=== PATIENT | male | born 1960 | race Caucasian/White ===

== ENCOUNTER 2018-08-12 08:33 | Day surgery (SDC) | payer BC | END 2018-08-12 10:50 | disposition home or self-care (01) | LOC: JASU-ENDO 08:33 ==

== ENCOUNTER 2019-03-02 00:36 | Emergency (ER) | payer BC ==
[2019-03-02 00:50] VITALS: BP 131/79; PULSE 71; TEMP 97.9; BMI 30.7
--- NOTE | 2019-03-02 01:27 | PDOC ---
Attending Attestation - Resident Resident Name: JenySky - ED Attending Attestation I have performed the following: I have examined & evaluated the patient, The case was reviewed & discussed with the resident, I agree w/resident's findings & plan - HPI HPI: 03/02/19 02:18 see resident hpi - Physicial Exam PE: 03/02/19 02:18 agree with resident exam - Medical Decision Making 03/02/19 02:19 58-year-old male complaining of nose bleeding that began just prior to arrival Patient is currently on Plavix On reexam in the emergency department he has had no active bleeding At this time nasal packing would potentially cause more harm than benefit Plan for short-term observation and if bleeding remains controlled will discharge with further instructions with outpatient follow-up
--- NOTE | 2019-03-02 02:03 | PDOC ---
History of Present Illness - General Chief Complaint: Nasal Bleeding Stated Complaint: BLEEDING FROM MOUTH Time Seen by Provider: 03/02/19 01:27 History Source: Patient Exam Limitations: No Limitations - History of Present Illness Initial Comments: 03/02/19 01:48 58 YO male pmh HTN, HLD, s/p cardiac stent (on Plavix) presents to the ED for a nose bleed. Pt states the bleed started around 7 pm after blowing, from the left nostril and intermittently stops but restarts. Denies nose picking, persistent blowing of nose, hx of bleeds or bleeding disorders, lightheadedness , weakness, hx of anemia. Pt =denies excessive loss of blood Past History - Past Medical History Allergies/Adverse Reactions: Allergies Allergy/AdvReac Type Severity Reaction Status Date / Time ramipril Allergy Verified 03/02/19 00:47 Home Medications: Ambulatory Orders Allopurinol [Zyloprim -] 300 mg PO DAILY 05/23/12 Metoprolol Tartrate [Lopressor -] 25 mg PO BID 05/23/12 Amlodipine/Atorvastatin [Amlodipine-Atorvast 2.5-20 mg] 1 tab PO DAILY 08/11/18 Atorvastatin Ca [Lipitor] 40 mg PO HS 08/11/18 Clopidogrel Bisulfate [Clopidogrel] 1 tab PO DAILY 08/11/18 Tamsulosin HCl 0.4 mg PO DAILY 08/12/18 Anemia: No Asthma: No Cancer: No Cardiac Disorders: Yes (ASHD S/P STENT) CVA: (TIA WITH RIGHT HEMIPARESIS 2014) COPD: No CHF: No Dementia: No Diabetes: No 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) HTN: Yes Hypercholesterolemia: Yes Kidney Stones: Yes Liver Disease: No Seizures: No Thyroid Disease: No - Surgical History Abdominal Surgery: No Appendectomy: No Cardiac Surgery: Yes (STENTS 2011 X 1) Cholecystectomy: No Lung Surgery: No Neurologic Surgery: No Orthopedic Surgery: No - Psycho Social/Smoking Cessation Hx Smoking Status: No Smoking History: Never smoked Have you smoked in the past 12 months: No Number of Cigarettes Smoked Daily: 0 If you are a former smoker, when did you quit?: 2000 Hx Alcohol Use: No Drug/Substance Use Hx: No Substance Use Type: None Hx Substance Use Treatment: No Review of Systems - Review of Systems Constitutional: Yes: Symptoms Reported HEENTM: Yes: Symptoms Reported Respiratory: Yes: Symptoms reported Cardiac (ROS): Yes: Symptoms Reported ABD/GI: Yes: Symptoms Reported : Yes: Symptoms Reported Musculoskeletal: Yes: Symptoms Reported Integumentary: Yes: Symptoms Reported Neurological: Yes: Symptoms reported *Physical Exam - Vital Signs Last Vital Signs Temp Pulse Resp BP Pulse Ox 97.9 F 71 16 131/79 99 03/02/19 00:48 03/02/19 00:48 03/02/19 00:48 03/02/19 00:48 03/02/19 00:48 - Physical Exam General Appearance: Yes: Nourished, Appropriately Dressed. No: Apparent Distress HEENT: positive: EOMI, Other (no active nasal bleeding, no blood in the oral oharynx) Neck: positive: Supple. negative: Carotid bruit Respiratory/Chest: positive: Lungs Clear, Normal Breath Sounds. negative: Accessory Muscle Use, Rapid RR Cardiovascular: positive: Regular Rhythm, Regular Rate, S1, S2. negative: Edema Vascular Pulses: Dorsalis-Pedis (R): 4+, Doralis-Pedis (L): 4+ Gastrointestinal/Abdominal: positive: Flat, Soft. negative: Pulsatile Mass, Distended, Guarding, Rebound, Tenderness Musculoskeletal: negative: CVA Tenderness Integumentary: positive: Normal Color, Dry, Warm. negative: Ecchymosis, Bruising Neurologic: positive: Fully Oriented, Alert, Normal Mood/Affect, Normal Response , Motor Strength 5/5 Medical Decision Making - Medical Decision Making 03/02/19 02:48 58 YO male pmh HTN, HLD, s/p cardiac stent (on Plavix) presents to the ED for a nose bleed. Pt states the bleed started around 7 pm after blowing, from the left nostril and intermittently stops but restarts. Denies nose picking, persistent blowing of nose, hx of bleeds or bleeding disorders, lightheadedness , weakness, hx of anemia. Pt =denies excessive loss of blood No active bleeding in the ED, observed for over 1 hour Pt safe for DC home with PCP follow up and DI instructions on how to deal with nose bleeds if they return Given ENT f/u and PCP fu Discharge - Discharge Information Problems reviewed: Yes Clinical Impression/Diagnosis: Anterior epistaxis Condition: Stable Disposition: HOME - Admission No - Follow up/Referral Referrals: Farrukh Gray MD [Primary Care Provider] - Tobias Horton MD [Staff Physician] - - Patient Discharge Instructions Patient Printed Discharge Instructions: DI for Nosebleed Additional Instructions: Please see your Primary Doctor within the next 48 hours. Make an appointment to see the ENT doctor prescribed to you. Follow the instructions on how to deal with nose bleeds in your discharge packet. Return to the ER for new or concerning symptoms including but not limited to: persistent nose bleeding, light headedness, weakness. Thank you - Post Discharge Activity
== END 2019-03-02 03:03 | disposition home or self-care (01) ==
LOC: JER 00:36
DX: R04.0 Epistaxis (principal); I10 Essential (primary) hypertension; E78.5 Hyperlipidemia, unspecified; Z95.5 Presence of coronary angioplasty implant and graft; Z87.891 Personal history of nicotine dependence; E78.00 Pure hypercholesterolemia, unspecified; N20.0 Calculus of kidney; Z88.8 Allergy status to other drugs, medicaments and biological substances; Z79.01 Long term (current) use of anticoagulants
CPT/HCPCS: 99282-25

== ENCOUNTER 2023-04-25 01:54 | Emergency (ER) | payer BC ==
[2023-04-25 02:04] VITALS: TEMP 98.3; BMI 31.6
[2023-04-25] MEDS ORDERED: OXYMETAZOLINE 0.05% NASAL SOLUTION 15 ML BOTTLE NS ONE (02:23)
[2023-04-25 05:25] LABS: BASO % 0.9 % (0-2.0); EOS % 2.8 % (0-4.5); HEMATOCRIT 42.3 % (35.4-49); HEMOGLOBIN 14.6 GM/dL (11.7-16.9); LYMPH % 28.9 % (8-40); MCH 30.1 pg (25.7-33.7); MCHC 34.5 g/dl (32.0-35.9); MEAN CELL VOLUME 87.3 fl (80-96); MEAN PLT VOLUME 7.9 fl (7.5-11.1); MONO % 11.2 % (3.8-10.2); NEUT % 56.2 % (42.8-82.8); PLATELET COUNT 148 10^3/uL (134-434); RBC 4.85 M/mm3 (4.00-5.60); RDW 13.5 % (11.9-15.9)
[2023-04-25 05:33] LABS: INR 1.06 (0.83-1.09); PROTHROMBIN TIME (PATIENT) 12.3 SEC (9.7-13.0)
[2023-04-25 05:36] LABS: ACTIVATED PTT 31.8 SECONDS (25.2-36.5)
[2023-04-25 05:53] VITALS: BP 140/77; PULSE 82; RESP 17
== END 2023-04-25 06:12 | disposition home or self-care (01) ==
LOC: JER 01:54
DX: R04.0 Epistaxis (principal)
CPT/HCPCS: 36415; 85025; 85610; 85730; 86850; 86900; 86901; 99283-25

== ENCOUNTER 2024-08-25 06:21 | Day surgery (SDC) | payer BC ==
[2024-08-24 11:31] VITALS: BMI 32.9
[2024-08-25 11:15] VITALS: BP 114/76; PULSE 64; RESP 18; TEMP 97.9
[2024-08-25 12:12] LABS: INR 1.17 (0.83-1.09); PROTHROMBIN TIME (PATIENT) 12.7 SEC (9.7-13.0)
[2024-08-25 12:27] LABS: BILIRUBIN,DIRECT 0.4 mg/dL (0.0-0.2); IRON SERUM 91 ug/dL (50-175)
[2024-08-25 12:29] LABS: BILIRUBIN,TOTAL 2.2 mg/dL (0.2-1); TOTAL IRON BINDING CAPACITY 290 ug/dL (250-450)
[2024-08-25 12:30] LABS: TOT PROT 7.1 g/dl (6.4-8.2)
[2024-08-25 12:48] LABS: HEPATITIS B SURF AG NON-MATERN NON-REACTIVE (NONREACTIVE)
[2024-08-25 13:17] LABS: HCV DIAGNOSTIC IN-HOUSE W/RFLX NON-REACTIVE (NONREACTIVE)
[2024-08-26 17:06] LABS: ALPHA-1-ANTITRYPSIN SERUM 145 mg/dL (101-187); MITOCHONDRIAL AB <20.0 Units (0.0-20.0)
[2024-08-27 13:06] LABS: GLIADIN ANTIBODY IGA 5 units (0-19); TRANSGLUTAMINASE IGG < 2 U/mL (0-5)
== END 2024-08-25 11:07 | disposition home or self-care (01) ==
LOC: JASU-ENDO 06:21
PROVIDERS: ATTEND Internal Medicine Gastroenterology
PROC: 0DBN8ZZ Excision of Sigmoid Colon, Via Natural or Artificial Opening Endoscopic (ICD-10-PCS; principal; 2024-08-25 09:00)
DX: Z12.11 Encounter for screening for malignant neoplasm of colon (principal); D12.5 Benign neoplasm of sigmoid colon; K64.8 Other hemorrhoids; K57.30 Diverticulosis of large intestine without perforation or abscess without bleeding
CPT/HCPCS: 36415; 80076; 82103; 82390; 82728; 82784; 83516; 83540; 83550; 85610; 86038; 86803; 87340; 87517; 88305-TC